=== PATIENT | female | born 1990 | race Caucasian/White ===

== ENCOUNTER 2019-04-04 10:27 | Emergency (ER) | payer BC ==
--- NOTE | 2019-04-04 11:00 | ED ---
Complex/Multi-Sys Presentation - HPI Summary HPI Summary: Patient is a 28 y/o F presenting to [facility] with complaints of fever, PALMER, N/V and fatigue. She states that around two weeks ago, she had "hand, foot, and mouth" and fever of 103 F. Patient states that she began to feel better, but Sx recently resumed and worsened. She went to today. [place] was negative. Patient states that she was told her urine contained bilirubin and she was sent to [facility] for further workup. Urine has been a dark color. Patient notes that she has been treating her fever with ibuprofen. She reports some N/V but states that this could be a result of the amount of ibuprofen she has been taking. Some soreness of the back of her neck is noted, patient states she has a "knot" there. Patient also states that she had redness of her eyes last week which has since resolved, but she states that her eyelids feel swollen at present. In room , pulse 117, BP 119/76, o2 96 on RA. On triage, pain is rated 4/10, nothing is noted to aggravate/alleviate Sx. Home medications and allergies are reviewed. Female nurse friend is present in the room. - History Of Current Complaint Chief Complaint: EDGeneral Time Seen by Provider: 04/04/19 10:47 Hx Obtained From: Patient Onset/Duration: Lasting Weeks, Still Present, Resolved - redness of eyes, Worse Since Timing: Constant, Weeks Severity Currently: Moderate Location: Pain At: - head Aggravating Factor(s): nothing Alleviating Factor(s): nothing Associated Signs And Symptoms: Positive: Headache, Nausea, Vomiting, Fever - reported to be 103 F, on vitals, temporal temp of 97.6 F, Other - dark colored urine, fatigue, neck soreness, redness of eyes, swollen eyelids - Allergies/Home Medications Allergies/Adverse Reactions: Allergies Allergy/AdvReac Type Severity Reaction Status Date / Time No Known Allergies Allergy Verified 04/04/19 10:53 PMH/Surg Hx/FS Hx/Imm Hx Sensory History: Denies: Hx Legally Blind, Hx Deafness Opthamlomology History: Denies: Hx Legally Blind EENT History: Denies: Hx Deafness Infectious Disease History: No Infectious Disease History: Denies: Traveled Outside the [place] in Last 30 Days - Family History Known Family History: Negative: Seizure Disorder - Social History Alcohol Use: Occasionally Substance Use Type: Reports: None Smoking Status (MU): Never Smoked Tobacco Review of Systems Positive: Fever - on vitals, temp is 97.6 F , Fatigue Eyes: Other - positive - swollen eyelids Positive: Erythema Positive: Vomiting, Nausea Genitourinary: Other - positive - dark colored urine Musculoskeletal: Other - positive - neck soreness Positive: Headache All Other Systems Reviewed And Are Negative: Yes Physical Exam - Summary Physical Exam Summary: Appearance: The patient is well-nourished in no acute distress and in no acute pain. Skin: The skin is warm and dry, and skin color reflects adequate perfusion. HEENT: The head is normocephalic and atraumatic. The pupils are equal and reactive. The conjunctivae are mildly injected and without drainage. Nares are patent and without drainage. Mouth reveals dry mucous membranes, and the throat is without erythema and exudate. The external ears are intact. The ear canals are patent and without drainage. The tympanic membranes are intact. Neck: The neck is supple with full range of motion and non-tender. There are no carotid bruits. There is no neck vein distension. Respiratory: Chest is non-tender. Lungs are clear to auscultation and breath sounds are symmetrical and equal. Cardiovascular: Tachycardia is noted. There is no murmur or rub auscultated. There is no peripheral edema and pulses are symmetrical and equal. Abdomen: The abdomen is soft and non-tender. There are normal bowel sounds heard in all four quadrants and there is no organomegaly palpated. Musculoskeletal: There is no back tenderness noted. Extremities are non-tender with full range of motion. There is good capillary refill. There is no peripheral edema or calf tenderness elicited. Neurological: Patient is alert and oriented to person, place and time. The patient has symmetrical motor strength in all four extremities. Cranial nerves are grossly intact. Deep tendon reflexes are symmetrical and equal in all four extremities. Psychiatric: The patient has an appropriate affect and does not exhibit any anxiety or depression. Triage Information Reviewed: Yes Vital Signs On Initial Exam: Initial Vitals Temp Pulse Resp BP Pulse Ox 97.6 F 117 20 127/91 98 04/04/19 10:04/04/19 10:29 04/04/19 10:04/04/19 10:04/04/19 10:29 Vital Signs Reviewed: Yes Procedures - Sedation Patient Received Moderate/Deep Sedation with Procedure: No Diagnostics - Vital Signs Vital Signs Temp Pulse Resp BP Pulse Ox 04/04/19 10:29 97.6 F 117 20 127/91 98 - Laboratory Result Diagrams: 04/04/19 11:12 04/04/19 11:18 Lab Statement: Any lab studies that have been ordered have been reviewed, and results considered in the medical decision making process. - Ultrasound LIVER US Ultrasound Interpretation Completed By: Radiologist Summary of Ultrasound Findings: IMPRESSION: #. Negative for intra or extrahepatic biliary dilatation. #. Post cholecystectomy. #. Mild hepatomegaly. THIS REPORT WAS REVIEWED BY DR. RENO Re-Evaluation - Re-Evaluation First Eval Re-Evaluation Time: 12:06 Comment: 1206 bloodwork discussed, US RUQ to be completed. Complex Multi-Symp Course/Dx Course Of Treatment: Ms. Murray presented complaining of generalized malaise. She felt that she had a coxsackievirus infection a couple weeks ago as she had fevers and some spots in her mouth. She no longer is having fevers but she continues to feel ill. She is afebrile on presentation, nontoxic in appearance and her vitals are stable aside from some mild tachycardia. She's given IV fluids while labs are obtained and reveal her to have a mild leukopenia of 3.3 and elevated transaminases in the 125 range with an alkaline phosphatase of 400 and a bilirubin of 4.4. I discussed this with Dr. Jerez who requested an MRCP. I spoke with who felt that an MRCP would not be necessary unless an ultrasound showed dilated ducts. Ultrasound did not show dilated ducts. Her labs look like a viral pattern however the possibility of a tick born illness remains especially anaplasmosis. Those labs are sent and I discussed the situation with the patient. is going to see her in the office on Friday and she is going to be started on doxycycline at this time. - Diagnoses Provider Diagnoses: Tick-borne disease - Physician Notifications Discussed Care Of Patient With: Carlo Jerez Time Discussed With Above Provider: 11:59 Instructed by Provider To: Other - Patient's case was discussed with Dr. Jerez , he recommends MRCP. 1203 - Patient's case was discussed with Dr. Christianson, who recommends US RUQ before MRCP. Discharge ED - Sign-Out/Discharge Documenting (check all that apply): Patient Departure - discharge - Discharge Plan Condition: Stable Disposition: HOME Prescriptions: DOXYcycline CAP(*) [DOXYcycline 100MG CAP(*)] 100 mg PO BID #28 cap Patient Education Materials: Viral Syndrome (ED) Referrals: Carlo Jerez DO [Doctor of Osteopathy] - 3 Days Additional Instructions: Your labs values are consistent with the possibility of tick-borne illness. Labs have been sent and we are awaiting results. You have been prescribed antibiotics to treat your symptoms. Follow up with Dr. Jerez this upcoming 04/07/19. Please return to ED for any new or worsening symptoms. - Billing Disposition and Condition Condition: STABLE Disposition: Home - Attestation Statements Document Initiated by Michelle: Yes Documenting Scribe: ERICKSON DOS SANTOS Provider For Whom Michelle is Documenting (Include Credential): DORA RENO MD Scribe Attestation: IERICKSON, scribed for DORA RENO MD on 04/04/19 at 1534. Scribe Documentation Reviewed: Yes Provider Attestation: The documentation as recorded by the ERICKSON cramer accurately reflects the service I personally performed and the decisions made by me, DORA RENO MD Status of Scribe Document: Viewed
[2019-04-04] MEDS ORDERED: NS 0.9% 1000 ML** 1,000 ML IV ONE (11:03)
[2019-04-04 11:24] LABS: ABS Lymphocytes 1.6 10^3/ul (1.0-4.8); ABS Monocytes 0.4 10^3/ul (0-0.8); ABS Neutrophils 1.2 10^3/ul (1.5-7.7); Eosinophil % 0.1 %; Hematocrit 38 % (35-47); Hemoglobin 12.8 g/dL (12.0-16.0); Lymphocyte % 49.8 %; Mean Corpuscular HGB Conc 34 g/dL (31-36); Mean Corpuscular Hemoglobin 28 pg (27-31); Mean Corpuscular Volume 84 fL (80-97); Mean Platelet Volume 8.7 fL (7.4-10.4); Nucleated Red Blood Cells % 0.5; Platelet Count 215 10^3/uL (150-450); Red Blood Count 4.57 10^6 /uL (3.70-4.87); Red Cell Distribution Width 13 % (10-15); White Blood Count 3.3 10^3/uL (3.5-10.8)
[2019-04-04 11:44] LABS: Albumin 3.3 g/dL (3.2-5.2); Albumin/Globulin Ratio 0.8 (1-3); BUN/Creatinine Ratio 9.3 (8-20); C Reactive Protein 24.21 mg/L (<8.01); EGFR African American 110.5 (>60); EGFR Non-African American 91.4 (>60); Potassium 3.9 mmol/L (3.5-5.0); Total Bilirubin 4.4 mg/dL (0.2-1.0); Total Protein 7.3 g/dL (6.4-8.9)
[2019-04-04 12:12] LABS: Urine Appearance Clear; Urine Bilirubin Negative (Negative); Urine Blood Negative (Negative); Urine Color Amber; Urine Glucose Negative (Negative); Urine Ketones Negative (Negative); Urine Nitrite Negative (Negative); Urine Protein Negative (Negative); Urine Specific Gravity 1.003 (1.010-1.030); Urine Urobilinogen Negative (Negative)
[2019-04-04 12:53] LABS: Hepatitis B Surface Antigen Nonreactive (Nonreactive)
[2019-04-04 13:10] LABS: Hepatitis C Antibody Negative (Negative)
[2019-04-04 14:00] VITALS: BP 122/82
[2019-04-07 18:33] LABS: Anaplasma phagocytophilum Negative (Negative); B. miyamotoi PCR, B Negative (Negative); Babesia divergens/MO-1 Negative (Negative); Babesia ducani Negative (Negative); Ehrlichia chaffeensis Negative (Negative); Ehrlichia ewingii/canis Negative (Negative); Ehrlichia muris eauclairensis Negative (Negative)
== END 2019-04-04 14:22 | disposition home or self-care (01) ==
LOC: ED 10:27
DX: A93.8 Other specified arthropod-borne viral fevers (principal); R16.0 Hepatomegaly, not elsewhere classified; Z90.49 Acquired absence of other specified parts of digestive tract
CPT/HCPCS: 36415; 76705; 80053; 80074; 81003; 83605; 85025; 86140; 86618; 87798; 96360; 99283